=== PATIENT | male | born 1985 ===

== ENCOUNTER 2017-01-26 21:59 | Emergency (ER) | payer SELFPAY ==
[2017-01-26 22:24] VITALS: BP 122/82; PULSE 106; RESP 15; TEMP 98.6; O2SAT 97
--- NOTE | 2017-01-30 10:41 | CARD ---
APPROVED REPORT EKG Measurement Heart [id number] <Conclusion> Normal sinus rhythm with sinus arrhythmia Incomplete right bundle branch block Minimal voltage criteria for LVH, may be normal variant Borderline ECG
== END 2017-01-26 22:30 | disposition left against medical advice (07) ==
LOC: H.ER 21:59
DX: Z02.89 Encounter for other administrative examinations (principal)